=== PATIENT | female | born 1985 | race Caucasian/White ===

== ENCOUNTER 2017-05-03 08:59 | Day surgery (SDC) | payer OTHER ==
--- NOTE | 2017-05-02 22:09 | HP ---
Date/Time of Note Date/Time of Note DATE: 05/02/17 TIME: 22:02 Assessment/Plan VTE Prophylaxis VTE Prophylaxis Intervention: ambulation Lines/Catheters IV Catheter Type (from [facility] Peripheral IV Urinary Cath still in place: No Assessment/Plan Chief Complaint/Hosp Course Missed . Problems: Assessment/Plan D and C. HPI/ROS Admit Date/Time Admit Date/Time May 03, 2017 Hx of Present Illness 32 y.o. with a missed at 10 weeks 4 days by dates and 6 week 2 days by size with a non-viable . Pt has been having light bleeding since 04/28 and wishes to finish the process as soon as possible. PMHx: none. PSHx: wisdom teeth only. POBHx: x 2014. Allergies: Amoxicillin. PMH/Family/Social Past Medical History Medical History: no pertinent history Past Surgical History Past Surgical Hx: no surgical history Family History Significant Family History: hypertension (father) Social History Alcohol Use: none Smoking Status: Never smoker Drug Use: none Exam/Review of Systems Vital Signs Vitals BP 124/80 Medications Medications Current Medications Lactated Ringer's (Lr) 1,000 ml @ 125 mls/hr Q8H IV ; Start 05/02/17 at 21:30 ; Status UNV Procedures Procedures US: +IUP. S1. CRL 0.4 cm with no CM. VALENTÍN VENEGAS MD May 02, 2017 22:09
[~2017-05-03] VITALS: Ht 182.9 cm; Wt 77.1 kg
[2017-05-03] VITALS (13 sets, daily range): BP systolic 95–117; BP diastolic 58–71; PULSE 56–86; RESP 16–18; Ht 182.9 cm; Wt 77.1 kg
[~2017-05-03 08:59] MED LIST: LACTATED RINGER'S 1,000 ML IV SCH
[2017-05-03] MEDS ORDERED: PREN-6 PO (09:19)
[2017-05-03] MEDS ORDERED: MIDAZOLAM 1 MG/ML 2 ML INJ ONE (11:57)
[2017-05-03] MEDS ORDERED: LIDOCAINE 2% (SDV) 5 ML INJ ONE (11:57)
[2017-05-03] MEDS ORDERED: PROPOFOL 20 ML ONE (11:57)
[2017-05-03] MEDS ORDERED: CEFAZOLIN 1 GM INJ ONE (12:10)
[2017-05-03] MEDS ORDERED: FAMOTIDINE 20 MG INJ ONE (12:13)
[2017-05-03] MEDS ORDERED: DEXAMETHASONE 4 MG/ML 1 ML INJ ONE (12:13)
[2017-05-03] MEDS ORDERED: ONDANSETRON 4 MG INJ ONE (12:13)
--- NOTE | 2017-05-03 13:25 | OPR ---
Date/Time of Note Date/Time of Note DATE: 05/03/17 TIME: 13:16 Operative Report Procedure Date: May 03, 2017 Preoperative Diagnosis Missed . Postoperative Diagnosis Same. 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 Grafts/Implants none Complications none Pt Condition Post Procedure: stable Disposition: PACU Procedure Description Pt was brought to the OR and placed on the OR table and placed under anesthesia. Her legs were brought up into hysterectomy stirrups and prepped and draped in the usual sterile fashion. A bivalve speculum was place, the cervix was grasped with a tenaculum and the cervix was dilated. The uterus was sounded to 10 cm. A 7 mm rigid, curved suction curette was selected and attached to the suction equipment and the uterine contents were evacuated over several passes. A sharp curette was then used to check the sidewalls and the fundus which were deemed to be clean and the suction was then used for one final pass. The tenaculum was removed, the vault was cleaned and the speculum removed and the procedure was terminated. The pt was awakened and brought to the recovery room in excellent condition. Blood type is A+. VALENTÍN VENEGAS MD May 03, 2017 13:25
[2017-05-04] MEDS ORDERED: INFLUENZA VIRUS VACCINE 0.5 ML SYG IM* ONE (11:00)
== END 2017-05-03 14:25 | disposition home or self-care (01) ==
LOC: SDS 08:59
PROVIDERS: ATTEND Obstetrics & Gynecology
DX: O02.1 Missed abortion (principal)
CPT/HCPCS: 59820; 85025; 85610; 85730; 86900; 86901; J1100; J2250; J2405; J0690